=== PATIENT | male | born 1985 ===

== ENCOUNTER 2018-10-09 08:36 | Emergency (ER) | payer MEDICAID ==
[2018-10-09 08:41] VITALS: BMI 23.6
[2018-10-09 08:46] VITALS: TEMP 98.8; O2SAT 100
[2018-10-09] MEDS ORDERED: (Novolin R) Insulin Human Regular 100 units/ml vial SC ONE (09:23)
--- NOTE | 2018-10-09 09:23 | C.PDOC ---
History Of Present Illness 33 y/o male,w/PMhx of Type 1 diabetes, presents to the ER requesting diabetes medications refill. Patient states that he was recently admitted and discharged from a detox unit. Patient reports that he ran out his medications in the morning and he has not been able take full dose of Insulin. Denies having fever,chills, headache, dizziness, CP,SOB, nausea, and vomiting. Time Seen by Provider: 10/09/18 08:53 Chief Complaint (Nursing): Med Refill History Per: Patient History/Exam Limitations: no limitations Past Medical History Reviewed: Historical Data, Nursing Documentation, Vital Signs Vital Signs: Last Vital Signs Temp 98.8 F 10/09/18 08:45 Pulse 88 10/09/18 08:45 Resp 18 10/09/18 08:45 BP 131/83 10/09/18 08:45 Pulse Ox 100 10/09/18 08:45 Primary Care Provider: Non [facility] Provider, - Medical History PMH: Diabetes Surgical History: No Surg Hx Family History: States: No Known Family Hx - Social History Hx Alcohol Use: No Hx Substance Use: Yes - Immunization History Hx Tetanus Toxoid Vaccination: Yes Hx Influenza Vaccination: No Hx Pneumococcal Vaccination: No Review Of Systems Except As Marked, All Systems Reviewed And Found Negative. Constitutional: Negative for: Fever, Chills Cardiovascular: Negative for: Chest Pain Respiratory: Negative for: Shortness of Breath Gastrointestinal: Negative for: Nausea, Vomiting, Abdominal Pain Physical Exam - Physical Exam Appears: Non-toxic, No Acute Distress Skin: Normal Color, Warm, Dry Head: Atraumatic, Normacephalic Eye(s): bilateral: Normal Inspection Nose: Normal Oral Mucosa: Moist Neck: Supple Chest: Symmetrical Cardiovascular: Rhythm Regular Respiratory: Normal Breath Sounds, No Rales, No Rhonchi, No Plerual Rub Neurological/Psych: Oriented x3, Normal Speech ED Course And Treatment O2 Sat by Pulse Oximetry: 100 (RA) Pulse Ox Interpretation: Normal Medical Decision Making Medical Decision Making: Patient has Fingerstick 374 in ER. Patient treated with Novolin R 8 units SC. Repeat FS is 200 Disposition - Disposition Referrals: [facility] [Outside] [facility] [Outside] Disposition: HOME/ ROUTINE Disposition Time: 10:30 Condition: GOOD Additional Instructions: FOLLOW UP WITH THE MEDICAL CLINIC WITHIN 1-2 WEEKS. RETURN IF WORSENED. Prescriptions: Blood Sugar Diagnostic [Blood Glucose Test Strip] 1 each TID #90 strip Insulin Glargine,Hum.rec.anlog [Lantus Solostar] 100 unit SQ BID #2 insuln.pen Insulin Human Regular [HumuLIN R] 100 units SC TID #50 ml Pen Needle, Diabetic [Pen Needle] 1 each MC BID #60 dis.needle Syringe and Needle,Insulin,1Ml [Easy-Touch Insulin Syringe] 1 each TID #90 disp.syrin Instructions: Hyperglycemia, Adult (DC) Forms: [employer] (Croatian) - Clinical Impression Clinical Impression: Review of medication, Hyperglycemia - PA / [employer] / Resident Statement MD/DO has reviewed & agrees with the documentation as recorded. - Scribe Statement The provider has reviewed the documentation as recorded by the Fideibe Zoya Bright Provider Attestation All medical record entries made by the Scribe were at my direction and personally dictated by me. I have reviewed the chart and agree that the record accurately reflects my personal performance of the history, physical exam, medical decision making, and the department course for this patient. I have also personally directed, reviewed, and agree with the discharge instructions and disposition.
[2018-10-09] MEDS ORDERED: (Novolin R) Insulin Human Regular 100 units/ml vial ONE (09:35)
[2018-10-09 10:59] VITALS: BP 104/52; PULSE 63; RESP 16
== END 2018-10-09 11:15 | disposition home or self-care (01) ==
LOC: C.ER 08:36
DX: Z76.0 Encounter for issue of repeat prescription (principal); E10.65 Type 1 diabetes mellitus with hyperglycemia